=== PATIENT | female | born 1940 | race Caucasian/White ===

== ENCOUNTER 2020-02-19 14:21 | Emergency (ER) | payer OTHER ==
[~2020-02-19] VITALS: Ht 157.5 cm; Wt 77.1 kg
[2020-02-19 15:19] VITALS: Ht 157.5 cm; Wt 77.1 kg
[2020-02-19 18:38] LABS: CALCIUM 9.4 mg/dL (8.5-10.1); CHLORIDE SERUM 106 mmol/L (98-107); GLUCOSE SERUM 166 mg/dL (74-106); SODIUM SERUM 143 mmol/L (136-145)
[2020-02-19 18:41] LABS: ALBUMIN 3.7 g/dL (3.4-5.0); ALKALINE PHOSPHATASE 82 U/L (46-116); ALT/SGPT 28 U/L (14-59); AST/SGOT 14 U/L (15-37); BILIRUBIN TOTAL 0.3 mg/dL (0.20-1.00); TOTAL PROTEIN, SERUM 7.8 g/dL (6.4-8.2)
[2020-02-19 18:49] LABS: BASOPHIL % 0.3 % (0.2-1.3); PLATELET COUNT 239 x10^3mcL (179-408); RED CELL DISTRIBUTION WIDTH 14.1 % (12.3-17.7)
[2020-02-19 19:54] VITALS: BP 153/69
== END 2020-02-19 19:54 | disposition home or self-care (01) ==
LOC: ED 14:21
PROVIDERS: Specialist
DX: M79.601 Pain in right arm (principal); I10 Essential (primary) hypertension; E11.9 Type 2 diabetes mellitus without complications
CPT/HCPCS: 82962